=== PATIENT | female | born 1990 | race Caucasian/White ===

== ENCOUNTER → 2023-07-13 09:15 | Outpatient (CLI) | payer OTHER, SELFPAY ==
[2023-07-13 11:13] LABS: Hemoglobin A1C% w Est Avg Glu 4.8 % (4.0-6.0)
[2023-07-13 11:30] LABS: Cholesterol 166 mg/dL (140-199); HDL Cholesterol 54 mg/dL (40-60); LDL Cholesterol Calculated 95 mg/dL (<100); Triglycerides 87 mg/dL (35-150)
[2023-07-13 12:02] LABS: TSH w/ Reflex to FT4 2.73 uIU/mL (0.47-4.68)
== END ==
PROVIDERS: PCP Family Medicine; Referring Provider Family Medicine; Visit Provider Family Medicine
DX: E66.9 Obesity, unspecified (principal); R63.5 Abnormal weight gain
CPT/HCPCS: 36415; 80061; 83036; 84443

== ENCOUNTER → 2023-12-21 07:26 | Outpatient (CLI) | payer BC, SELFPAY ==
[2023-12-21 08:08] LABS: Add Manual Diff / Slide Review NO; Basophils Absolute Auto 0 /uL (0-100); Basophils Percent Auto 0.5 % (0-2); Eosinophils Absolute Auto 100 /uL (0-450); Eosinophils Percent Auto 1.5 % (2-4); Hematocrit 37.1 % (36-46); Hemoglobin 12.8 g/dL (12.0-16.0); Lymphocytes Absolute Auto 2000 /uL (1100-4500); Lymphocytes Percent Auto 39.3 % (25-40); Mean Corpuscular HGB Conc 34.5 % (30-36); Mean Corpuscular Volume 92.8 fL (80-100); Monocytes Absolute Auto 400 /uL (0-900); Monocytes Percent Auto 7.2 % (3-14); Neutrophils Absolute Auto 2600 /uL (1500-7000); Neutrophils Percent Auto 51.5 % (50-75); Platelet Count 234 X10^3/uL (150-400); Red Cell Distribution Width 12.6 % (11.6-14.8); White Blood Cell Count 5.1 X10^3/uL (4.5-11.0)
[2023-12-21 08:40] LABS: HEMOLYSIS < 15 (0-50); Iron 123 ug/dL (37-170)
[2023-12-21 08:51] LABS: Percent Iron Saturation 39 % (15-50); Total Iron Binding Capacity 318 ug/dL (265-497); Transferrin 248 mg/dL (206-381)
[2023-12-21 08:59] LABS: Follicle Stimulating Hormone 5.89 mIU/mL
[2023-12-21 09:03] LABS: Prolactin 33.7 ng/mL (3.0-18.6)
[2023-12-21 09:11] LABS: Rubella Antibody IgG 28.7 IU/mL (>15)
[2023-12-21 09:14] LABS: TSH w/ Reflex to FT4 3.74 uIU/mL (0.47-4.68)
[2023-12-21 09:16] LABS: Cortisol AM (Before 10AM) 15.7 ug/dL (4.46-22.7)
[2023-12-21 09:20] LABS: Ferritin 20 ng/mL (6-137)
[2023-12-21 11:16] LABS: Urine N gonorrhoeae NOT DETECTED
[2023-12-21 11:43] LABS: Urine Chlamydia NOT DETECTED
[2023-12-22 08:36] LABS: Varicella IgG Antibody 909 index (Immune >165)
[2023-12-27 22:35] LABS: Anti Mullerian Hormone 1.53 ng/mL (.)
== END ==
PROVIDERS: PCP Family Medicine; Referring Provider Family Medicine; Visit Provider Family Medicine
DX: R53.83 Other fatigue (principal); Z31.69 Encounter for other general counseling and advice on procreation; N92.6 Irregular menstruation, unspecified; N89.8 Other specified noninflammatory disorders of vagina
CPT/HCPCS: 36415; 82397; 82533; 82728; 83001; 83540; 83550; 84146; 84443; 85025; 86762; 86787; 87491; 87591

== ENCOUNTER → 2024-02-10 08:19 | Outpatient (CLI) | payer BC, SELFPAY ==
[2024-02-10 10:11] LABS: Prolactin 31.2 ng/mL (3.0-18.6)
== END ==
LOC: LAB 08:20
PROVIDERS: PCP Family Medicine; Referring Provider Family Medicine; Visit Provider Family Medicine
DX: E22.1 Hyperprolactinemia (principal); N97.9 Female infertility, unspecified
CPT/HCPCS: 36415; 84146

== ENCOUNTER → 2024-02-15 18:43 | Outpatient (CLI) | payer BC, SELFPAY ==
--- NOTE | 2024-02-15 18:46 | DI.MRI.S_ITS ---
PROCEDURE: MR BRAIN (PITUITARY) WWO CON INDICATIONS: elevated prolactin level, assess for pituitary mass TECHNIQUE: Noncontrast sagittal and axial FLAIR, axial gradient echo, axial diffusion and ADC through the brain. Thin-slice sagittal and coronal T1 spin echo, coronal T2 fast spin echo through the pituitary. After the administration contrast, optional dynamic coronal T1 spin echo, thin-slice coronal and sagittal T1 spin echo images through the pituitary fossa; axial and coronal and sagittal T1 spin echo with fat saturation through the brain. COMPARISON: None. FINDINGS: Image quality: Excellent. Pituitary Gland: Normal in size. No focal mass. No areas of delayed or abnormal enhancement. Infundibulum is midline. CSF Spaces: Ventricles are normal in size and shape. Basal cisterns are patent. No extra-axial fluid collections. Brain: No intracranial bleeds or mass effects. No abnormal intracranial enhancement. Alonzo-white matter interface is intact. Diffusion weighted images demonstrate no acute ischemic insults. Brainstem is normal. Normal intravascular flow voids are present. Skull and face: Calvarial marrow is normal in signal. Orbits appear normal. Sinuses: Sinuses and mastoids are clear. IMPRESSION: 1. No acute intracranial process. Dictated by: Maile Hua M.D. on 02/16/2024 at 13:35 Approved by: Maile Hua M.D. on 02/16/2024 at 13:37
== END ==
PROVIDERS: PCP Family Medicine; Referring Provider Family Medicine; Visit Provider Family Medicine
DX: E22.1 Hyperprolactinemia (principal)
CPT/HCPCS: 70553; A9579